=== PATIENT | male | born 1955 | race Caucasian/White ===

== ENCOUNTER → 2021-03-05 03:37 | Outpatient (CLI) | payer BC, SELFPAY ==
[2021-03-05 20:04] LABS: SARS-CoV-2 RNA PCR Negative
== END ==
PROVIDERS: PCP Family Medicine; Visit Provider Internal Medicine Gastroenterology
DX: Z01.812 Encounter for preprocedural laboratory examination (principal); Z20.822 Contact with and (suspected) exposure to COVID-19
CPT/HCPCS: C9803; U0003; U0005

== ENCOUNTER 2021-03-08 01:14 | Day surgery (SDC) | payer BC, SELFPAY ==
[2021-02-25 13:56] VITALS: BMI 32.5
[2021-03-08 06:52] VITALS: BP 131/93; PULSE 98; RESP 20; TEMP 36.2; O2SAT 98; BMI 31.1
[2021-03-08] MEDS: LACTATED RINGERS 1,000 ML 150 ML IV CONT (07:01)
[2021-03-08 07:02] LABS: Glucose Point of Care 204 mg/dl (65-105)
--- NOTE | 2021-03-08 07:25 | WPDGICN ---
Assessment and Plan Assessment and plan (1) History of colon cancer: Code(s): Z85.038 - Personal history of other malignant neoplasm of large intestine Status: Acute Assessment and Plan: Patient has a history colon cancer status post surgical resection 10 years ago. He presents today for surveillance exam. Suggest exams at least at 3 year intervals. GI Consult Note Consult date/time: 03/08/21 07:25 HPI: Derrick Hernandez is a 65 year old male Presents for surveillance colonoscopy. Patient has a history of rectal carcinoma status post surgical resection 2009. His most recent exam 2017 indicator was unremarkable. Patient states his bowel habits are normal. He denies abdominal pain. He has been doing well. He presents today for follow-up examination. Review of Systems Review of Systems: All systems reviewed & are unremarkable except as noted in HPI and below PMFSH Past Medical History Medical History Arthritis BMI 31.0-31.9,adult BMI 33.0-33.9,adult Chronic anxiety Chronic depression Chronic low back pain without sciatica Colon cancer (~2009) Controlled diabetes mellitus Diabetes mellitus with hyperglycemia, with long-term current use of insulin fasting glucose 96 with hemoglobin A1c 8.4 on 01/07/2021 Diabetic peripheral neuropathy Encounter for prostate cancer screening Essential (primary) hypertension History of colon cancer Male erectile dysfunction, unspecified Mixed hyperlipidemia total cholesterol 210, triglycerides 820, HDL 35 and LDL not calculated on 01/07/2021 Nail fungal infection left great toenail Osteoarthritis involving multiple joints on both sides of body Vitamin B12 deficiency anemia (01/07/21) vitamin B12 level low at 317 on 01/07/2021 Family History Family History Mother Cancer Father Acute myocardial infarction Grandparent Cancer Grandparent No problems noted. Grandparent Heart disease Social History Social History Smoking packs per day: 1 Smoking cigarettes per day: 20.0 Years smoked: 10 Smoking pack-years: 10.00 Smoking status: Former smoker Tobacco type: e-cigarettes/vaping Additional smoking assessment comments: smoked cigarettes for 10 years now using e-cigarettes Alcohol intake: never Substance use: never Substance use type: does not use Living arrangements: with family Spiritual care concerns: No Meds Home Medications and Allergies Home Medications Medication Instructions Recorded Confirmed Type dapagliflozin 10 mg tablet 10 mg PO DAILY 08/07/20 02/25/21 History losartan 50 mg tablet 50 mg PO DAILY 08/07/20 02/25/21 History sildenafil 100 mg tablet 100 mg PO DAILY PRN 08/07/20 02/25/21 History metformin 500 mg tablet 2,000 mg PO DAILY #360 tablet 09/26/20 02/25/21 Rx fenofibrate nanocrystallized 145 145 mg PO DAILY #90 tablet 10/03/20 02/25/21 Rx mg tablet hydrocodone 7.5 mg-acetaminophen 1 tablet PO Q4H PRN 01/07/21 02/25/21 History 325 mg tablet atorvastatin 40 mg tablet 40 mg PO DAILY #90 tablet 01/09/21 02/25/21 Rx blood sugar diagnostic #100 ea 01/10/21 Rx blood-glucose meter #1 ea 01/10/21 Rx duloxetine 60 mg capsule,delayed 60 mg PO BID #180 cap 01/10/21 02/25/21 Rx release lancets #100 ea 01/10/21 Rx insulin degludec 200 unit/mL (3 56 unit SUBCUT DAILY #18 ml 02/11/21 02/25/21 Rx mL) subcutaneous pen Allergies Allergy/AdvReac Type Severity Reaction Status Date / Time morphine Allergy Unknown Unknown Verified 03/08/21 06:51 Vital Signs Vital Signs - 24 hr 03/08/21 06:52 Temperature 97.2 F L Pulse Rate 98 Respiratory Rate 20 Blood Pressure 131/93 H Pulse Oximetry 98 Exam Narrative: Physical exam reveals patient be alert. Vital signs stable. HEENT exam is unrem
--- NOTE | 2021-03-08 07:27 | WPDANESEPPF ---
Anes - Initial Pre Proc Eval Procedure: Operation Date: 03/08/21 08:00 Proposed Procedures p Screening Colonoscopy - Gianfranco Keith MD Date/Time: 03/08/21 07:27 Surgeon: Gianfranco Keith MD Pre Op Diagnosis: hx of colon polyps Patient Data Age: 65 Gender: M Height: 1.75 m Weight: 95.5 kg Last Vital Signs Temp 36.2 C L 03/08/21 06:52 Pulse 98 03/08/21 06:52 Resp 20 03/08/21 06:52 BP 131/93 H 03/08/21 06:52 Pulse Ox 98 03/08/21 06:52 Allergies Allergy/AdvReac Type Severity Reaction Status Date / Time morphine Allergy Unknown Unknown Verified 03/08/21 06:51 Home Medications Medication Instructions Recorded Confirmed Type dapagliflozin 10 mg tablet 10 mg PO DAILY 08/07/20 02/25/21 History losartan 50 mg tablet 50 mg PO DAILY 08/07/20 02/25/21 History sildenafil 100 mg tablet 100 mg PO DAILY PRN 08/07/20 02/25/21 History metformin 500 mg tablet 2,000 mg PO DAILY #360 tablet 09/26/20 02/25/21 Rx fenofibrate nanocrystallized 145 145 mg PO DAILY #90 tablet 10/03/20 02/25/21 Rx mg tablet hydrocodone 7.5 mg-acetaminophen 1 tablet PO Q4H PRN 01/07/21 02/25/21 History 325 mg tablet atorvastatin 40 mg tablet 40 mg PO DAILY #90 tablet 01/09/21 02/25/21 Rx blood sugar diagnostic #100 ea 01/10/21 Rx blood-glucose meter #1 ea 01/10/21 Rx duloxetine 60 mg capsule,delayed 60 mg PO BID #180 cap 01/10/21 02/25/21 Rx release lancets #100 ea 01/10/21 Rx insulin degludec 200 unit/mL (3 56 unit SUBCUT DAILY #18 ml 02/11/21 02/25/21 Rx mL) subcutaneous pen Laboratory Tests 03/08/21 06:59 POC Capillary Glucose 204 mg/dl H mg/dl (65-105) Patient hx anesthesia problems: none Family hx anesthesia problems: none Results Review: All pre-operative results and documents have been reviewed as part of the pre-operative evaluation. [facility] Past Medical History Medical History Arthritis BMI 31.0-31.9,adult BMI 33.0-33.9,adult Chronic anxiety Chronic depression Chronic low back pain without sciatica Colon cancer (~2009) Controlled diabetes mellitus Diabetes mellitus with hyperglycemia, with long-term current use of insulin fasting glucose 96 with hemoglobin A1c 8.4 on 01/07/2021 Diabetic peripheral neuropathy Encounter for prostate cancer screening Essential (primary) hypertension History of colon cancer Male erectile dysfunction, unspecified Mixed hyperlipidemia total cholesterol 210, triglycerides 820, HDL 35 and LDL not calculated on 01/07/2021 Nail fungal infection left great toenail Osteoarthritis involving multiple joints on both sides of body Vitamin B12 deficiency anemia (01/07/21) vitamin B12 level low at 317 on 01/07/2021 Family History Family History Mother Cancer Father Acute myocardial infarction Grandparent Cancer Grandparent No problems noted. Grandparent Heart disease Social History Social History Smoking packs per day: 1 Smoking cigarettes per day: 20.0 Years smoked: 10 Smoking pack-years: 10.00 Smoking status: Former smoker Tobacco type: e-cigarettes/vaping Additional smoking assessment comments: smoked cigarettes for 10 years now using e-cigarettes Alcohol intake: never Substance use: never Substance use type: does not use Living arrangements: with family Spiritual care concerns: No Anes - Eval Final PreProcedure Day of Procedure 03/08/21 07:27 Patient weight: obese Heart: regular rate and rhythm Lungs: clear to auscultation Airway: Mallampati scale class II Neurological: alert and oriented Last oral intake: >/= 8 hours ASA classification: III Emergent: no Anesthetic plan: proceed Anesthesia type and monitoring: general GIVS and standard monitoring Results Review: All pre-operative results and document
[2021-03-08 08:07] VITALS: BP 107/69; PULSE 87; RESP 16; O2SAT 96
[2021-03-08 08:17] VITALS: BP 129/90; PULSE 84; RESP 19; O2SAT 100
[2021-03-08 08:27] VITALS: BP 117/80; PULSE 87; RESP 23; O2SAT 100
[2021-03-08 08:35] LABS: Glucose Point of Care 166 mg/dl (65-105)
== END 2021-03-08 08:35 | disposition home or self-care (01) ==
PROVIDERS: PCP Family Medicine; Visit Provider Internal Medicine Gastroenterology
PROC: 0DJD8ZZ Inspection of Lower Intestinal Tract, Via Natural or Artificial Opening Endoscopic (ICD-10-PCS; CPT 45378; principal; 2021-03-08 08:00)
DX: Z12.11 Encounter for screening for malignant neoplasm of colon (principal); K64.8 Other hemorrhoids; K57.30 Diverticulosis of large intestine without perforation or abscess without bleeding; Z98.0 Intestinal bypass and anastomosis status; Z85.038 Personal history of other malignant neoplasm of large intestine; Z90.49 Acquired absence of other specified parts of digestive tract; F41.8 Other specified anxiety disorders; E11.42 Type 2 diabetes mellitus with diabetic polyneuropathy; E78.2 Mixed hyperlipidemia; D51.9 Vitamin B12 deficiency anemia, unspecified; F17.290 Nicotine dependence, other tobacco product, uncomplicated; Z79.84 Long term (current) use of oral hypoglycemic drugs; Z79.4 Long term (current) use of insulin; E66.9 Obesity, unspecified; Z68.31 Body mass index [BMI] 31.0-31.9, adult
CPT/HCPCS: 45378; 82948; C9803; J2704; J7120; U0003; U0005

== ENCOUNTER 2024-03-24 00:14 | Day surgery (SDC) | payer OTHER, SELFPAY ==
[2024-03-23 13:34] VITALS: BMI 32.3
[2024-03-24] VITALS (15 sets, daily range): BP systolic 95–122; BP diastolic 62–82; PULSE 78–93; RESP 13–22; TEMP 36.4; O2SAT 91–96
[2024-03-24 08:43] LABS: Basophils Percent Auto 0.2 % (0.2-1.2); Eosinophils Absolute Auto 0.3 K/mm3 (0-0.3); Eosinophils Percent Auto 3.5 % (0-4.4); Hematocrit 44.5 % (42.0-52.0); Hemoglobin 15.2 g/dL (14.0-18.0); Immature Granulocyte Absolute 0.08 K/mm3 (0.00-0.031); Lymphocytes Absolute Auto 1.77 K/mm3 (0.9-3.2); Lymphocytes Percent Auto 21.4 % (18.3-44.2); Mean Corpuscular HGB Conc 34.2 g/dl (32-36); Mean Corpuscular Hemoglobin 33.3 pg (26-34); Mean Corpuscular Volume 97.4 fl (80-100); Mean Platelet Volume 9.5 fl (7.4-10.4); Monocytes Absolute Auto 0.5 K/mm3 (0.1-0.6); Monocytes Percent Auto 6.5 % (2.6-8.5); Neutrophils Absolute Auto 5.6 K/mm3 (1.3-6.7); Neutrophils Percent Auto 67.4 % (45.5-73.1); Platelet Count Result 244 k/mm3 (150-375); Red Blood Count 4.57 M/mm3 (4.6-6.20); Red Cell Distribution Width 12.8 % (11.5-14.5); White Blood Count 8.3 K/mm3 (4.5-10.0)
[2024-03-24 08:52] LABS: Anion Gap 6 mmol/L (4-12); Blood Urea Nitrogen 15 mg/dL (9-20); Calcium 9.1 mg/dL (8.4-10.2); Carbon Dioxide 26 mmol/L (22-30); Chloride 106 mmol/L (98-107); Estimated CRCL calculation 104 ml/min; Estimated Glomerular Filt Rate > 60; Glucose 214 mg/dL (65-110); Sodium 138 mmol/L (137-145)
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
--- NOTE | 2024-03-24 09:33 | WPDHPUPDATE1 ---
History and Physical Update Update Date/Time: 03/24/24 08:33 History and Physical has been reviewed, including an updated exam of the patient. There are NO changes in the patient's condition. Risks, benefits, and alternatives have been discussed and questions answered. Patient agrees to proceed with procedure.
--- NOTE | 2024-03-24 10:55 | WPDCARDPROC ---
Cardiac Cath Procedure Note Date of procedure:: 03/24/24 Performing physician:: CATHETERIZATION LABORATORY REPORT Procedure Date: 03/24/2024 Referring Physician: Dr. Abdullahi Anesthesia: Versed and Fentanyl were ordered and given in my presence at 1004 procedure ended at 1021. Supervision of nurse, Mehdi Rene monitored moderate sedation with 2mg Versed and 100mcg Fentanyl was provided for 17 minutes. Pre-op Diagnosis: Abnormal Stress Test Post-op Diagnosis: Abnormal Stress Test Procedure(s): Left heart catheterization with coronary angiography Access Site: Right radial artery. Hemostasis with TR band Brief History and Clinical Indications: All risks, benefits and alternatives to left heart catheterization with or without percutaneous coronary intervention was discussed at length with the patient. Risk of complications including but not limited to bleeding, infection, arrhythmia, stroke, worsening kidney function, blood loss, groin hematoma, limb loss, emergency coronary artery bypass grafting, and even were discussed with the patient and all questions were answered. The patient understood and wished to proceed. Time out called, patient name, date of , medical record number, allergies, procedure performed, identify Mink Slicer, patient and staff member concurred with accurate data, procedure carried on. Findings: LEFT HEART CATHETERIZATION FINDINGS: 1. Left main: The left main coronary artery has 10-20% ostial and distal disease without any significant obstructive disease. 2. Left anterior descending: The LAD gives off 2 diagonal branches. The 1st diagonal branch is a small-caliber vessel. The 2nd diagonal branch is medium-sized vessel with mild ostial disease and 50% stenosis in its proximal body. The proximal LAD has a 70% calcific lesion followed by a 90% calcific lesion in the mid vessel. This is followed by another area of 95% calcific lesion in the mid LAD. 3. Left circumflex: The left circumflex artery is a large caliber vessel and gives off 5 OM branches. OM1 and OM2 are small caliber vessels. OM 3, 4, 5 are moderate caliber vessels with diffuse 20-30% stenosis. The left circumflex has a 80-90% stenosis in it's proximal body. 4. Right coronary artery: The RCA is a large dominant vessel with severe stenosis in its proximal body followed by subtotal occlusion in its distal body. There is [id number] collaterals. 5. Left ventricle: A. End-diastolic pressure 5 mmHg. B. LV gram deferred. C. No significant gradient across aortic valve on catheter pullback. 6. Opening AO pressure 88/55 and closing AO pressure 104/58 Description of Procedure: Informed consent signed and placed in the chart. Patient transferred to mechanical shop laborer room. Prepped and draped in usual sterile fashion. 2% lidocaine injected subcutaneously in right wrist area. 22-gauge venipuncture catheter used to access the right radial artery with the Seldinger technique. 6-FR slender sheath placed in right radial artery. Nitroglycerin 200mcg, Verapamil 2.5mg, and Heparin 5000U was given intraarterial through the sheath. J wire advanced under fluoroscopy 5F TIG diagnostic catheter engaged Left Main Coronary Artery. 5F JR4 diagnostic catheter engaged Right Coronary Artery Multiple orthogonal angiogram obtained and reviewed 5F Pigtail diagnostic catheter crossed aortic valve to obtain LVEDP, LV angiogram deferred. Hemostasis was achieved by application of TR band. Assessment: Severe multivesel CAD Post Operative Condition: Stable No significant blood loss Disposition: Home Plan: The patient will be monitored in the recovery area. Continue aggressive medical therapy and risk factor modification. Will lower his losartan dose to 25mg PO daily and add low dose metoprolol succinate 12.5mg PO daily CTS consult Darin Abdullahi Interventional Cardiology
[2024-03-24] MEDS: SODIUM CHLORIDE 0.9% IV 1,000 ML 125 ML IV CONT (11:32)
== END 2024-03-24 14:20 | disposition home or self-care (01) ==
PROVIDERS: PCP Family Medicine; Visit Provider Internal Medicine
PROC: 4A023N7 Measurement of Cardiac Sampling and Pressure, Left Heart, Percutaneous Approach (ICD-10-PCS; CPT 93452; principal; 2024-03-24 09:30)
DX: I25.10 Atherosclerotic heart disease of native coronary artery without angina pectoris (principal); I25.84 Coronary atherosclerosis due to calcified coronary lesion; E78.2 Mixed hyperlipidemia; I10 Essential (primary) hypertension; F12.90 Cannabis use, unspecified, uncomplicated; G89.29 Other chronic pain; M54.2 Cervicalgia; E11.65 Type 2 diabetes mellitus with hyperglycemia; D51.9 Vitamin B12 deficiency anemia, unspecified; M15.0 Primary generalized (osteo)arthritis; G60.9 Hereditary and idiopathic neuropathy, unspecified; N52.9 Male erectile dysfunction, unspecified; F41.9 Anxiety disorder, unspecified; F32.A Depression, unspecified; Z79.891 Long term (current) use of opiate analgesic; Z79.84 Long term (current) use of oral hypoglycemic drugs; Z79.4 Long term (current) use of insulin; Z85.038 Personal history of other malignant neoplasm of large intestine; Z82.49 Family history of ischemic heart disease and other diseases of the circulatory system
CPT/HCPCS: 36415; 80048; 85025; 93458; C1769; C1887; C1894; J1644; J2003; J2250; J2305; J3010; J7030; J7040